=== PATIENT | female | born 1990 | race African-American/Black ===

== ENCOUNTER 2018-03-17 17:55 | Day surgery (SDC) | payer OTHER ==
[2018-03-17 18:39] VITALS: BMI 38.7
--- NOTE | 2018-03-17 20:27 | PRG ---
DATE OF SERVICE: 03/17/2018 TIME OF SERVICE: 1900 hours. PRESENTING COMPLAINT: Contractions, history of delivery at 37 weeks. HISTORY OF PRESENT ILLNESS: Ms. Parrish is a 27-year-old 4, para 3 at 37 weeks' gestation, wh o sees Dr. Rose Diallo at [facility] [employer]. She reports that her previous pregnancies have all ende d in a relatively rapid spontaneous labor at 37 weeks. She reports that she had some contractions to day. No rupture of membranes and no bleeding, but was concerned that she might be in early labor. S he presents to Labor and Delivery unit, and on serial exams as well as electronic monitoring, i s noted to have uterine irritability and a cervical exam that is unchanged from Dr. Diallo's office la . OB AND RECRUITMENT DIRECTOR HISTORY: Antepartum record not available. The patient reports spontaneous vaginal delive linda x3. No complications. The patient has a history of HSV, has been prescribed her acyclovir prop hylaxis, but has not picked up yet. PAST MEDICAL HISTORY: Denies. PAST SURGICAL HISTORY: Denies. ALLERGIES: Denies. MEDICATIONS: vitamins. SOCIAL HISTORY: Denies tobacco, alcohol, or IV drug use. FAMILY HISTORY: Noncontributory. REVIEW OF SYSTEMS: Noncontributory. PHYSICAL EXAMINATION: VITAL SIGNS: Temperature 99.2, blood pressure 132/84, pulse 85, respirations 18. HEENT: Within normal limits. LUNGS: Clear to auscultation bilaterally. HEART: Regular rhythm. BREASTS: Without masses bilaterally. ABDOMEN: Soft and nontender without rebound or guarding. GENITOURINARY: Occasional uterine irritability is noted, but no coordinating contractions noted. Fu ndal height is 36 cm. FHTs are 140s to 150s, category 1 heart rate tracing. PELVIC: Vulva is without lesions. No evidence of active herpes lesions. Cervix exam by nurse was 2 -3, 50, -2, cephalic, which is unchanged from previous office exam. EXTREMITIES: Without clubbing, cyanosis or edema. IMPRESSION: 1. A 37 weeks' gestation with uterine irritability. No evidence of active labor. 2. History of genital HSV, not on acyclovir prophylaxis yet, but no evidence of active lesion. PLAN: Discharge home. ER precautions. The patient has followup schedule later this week by Dr. Liliana Diallo.
== END 2018-03-17 19:10 | disposition home or self-care (01) ==
LOC: L&D/OP 17:55
PROVIDERS: ATTEND Obstetrics & Gynecology
DX: O47.1 False labor at or after 37 completed weeks of gestation (principal); Z3A.37 37 weeks gestation of pregnancy; Z79.899 Other long term (current) drug therapy
CPT/HCPCS: 99282

== ENCOUNTER 2018-03-20 15:06 | Inpatient (IN) | payer OTHER ==
[2018-03-20 16:06] VITALS: BMI 38.7
[2018-03-20] MEDS ORDERED: HYDROcodone/Acetaminophen 5/325 mg Tablet PO PRN ×4 (17:57→23:04)
[2018-03-20] MEDS ORDERED: Promethazine HCl 25 MG/ML VIAL IM PRN (17:57)
[2018-03-20] MEDS ORDERED: Docusate 100 MG CAP PO PRN (17:57)
[2018-03-20] MEDS ORDERED: NS / Oxytocin 40 units/1000ml 1,000 ML IV PRN (17:57)
[2018-03-20] MEDS ORDERED: Ibuprofen 800 MG TAB PO PRN (17:57)
[2018-03-20] MEDS ORDERED: Lidocaine 1% (PF) 30 ML VIAL SC PRN (17:57)
[2018-03-20] MEDS ORDERED: Zolpidem Tartrate 5 MG TAB PO PRN (17:57)
[2018-03-20] MEDS ORDERED: Ondansetron HCl/PF 4 MG/2 ML Vial IVP PRN ×2 (17:57→23:04)
[2018-03-20] MEDS ORDERED: LR 500 ML/Oxytocin 10 units 0 ML ONE (18:15)
[2018-03-20 18:22] LABS: Hemoglobin 12.2 g/dL (12.0-16.0); Mean Corpuscular HGB CONC 34.3 g/dL (32.0-36.0); Mean Corpuscular Hemoglobin 30.8 pg (27.0-31.0); Mean Corpuscular Volume 89.8 fl (81.0-99.0); Platelet Count 315 thou/uL (130-400); RBC Distribution Width 11.9 % (11.5-14.5); Red Blood Cell (RBC) Count 3.96 mill/uL (4.20-5.40); White Blood Cell (WBC) Count 11.7 thou/uL (4.8-10.8)
[2018-03-20 18:46] LABS: Syphilis Antibody Nonreactive (Nonreactive); Syphilis Antibody Index 0.04 S/CO (<1.00 Non-Reactive)
[2018-03-20 18:48] LABS: HBSAg Index 0.21 S/CO (0-0.99); Hep B Surf Ag Non-Reactive S/CO (NonReactive)
[2018-03-20] MEDS: NS w/ Oxytocin 10 units 500 ML IV SCH (19:58)
[2018-03-20] MEDS ORDERED: Lidocaine 1% (PF) 30 ML VIAL ONE (22:35)
[2018-03-20] MEDS ORDERED: NS / Oxytocin 40 units/1000ml 1,000 ML ONE (22:35)
[2018-03-20] MEDS ORDERED: diphenhydrAMINE 25 MG CAP PO PRN (23:04)
[2018-03-20] MEDS ORDERED: Milk Of Magnesia 30 ML UDCUP PO PRN (23:04)
[2018-03-20] MEDS ORDERED: Adacel (T-DAP) 0.5 ML VIAL IM ONE (23:04)
[2018-03-20] MEDS ORDERED: Bisacodyl 10 MG SUPP PR PRN (23:04)
[2018-03-20] MEDS ORDERED: Lanolin Ointment 7 GM TUBE TOP PRN (23:04)
[2018-03-20] MEDS ORDERED: NS / Oxytocin 40 units/1000ml 1,000 ML IV SCH (23:15)
[2018-03-21] MEDS: Ibuprofen 800 MG TAB PO SCH ×2 (01:52→09:25)
--- NOTE | 2018-03-21 04:18 | DN ---
DATE OF SERVICE: 03/20/2018 ADMITTING DIAGNOSES: 1. A 27-year-old G4, P3 at 37 and 4 weeks with active labor. 2. Group B Streptococcus negative. 3. History of positive herpes simplex virus test without any history of original outbreak, on prophy laxis. 4. Short-interval . POSTOPERATIVE DIAGNOSES: 1. A 27-year-old G4, P3 at 37 and 4 weeks with active labor. 2. Group B Streptococcus negative. 3. History of positive herpes simplex virus test without any history of original outbreak, on prophy laxis. 4. Short-interval . 5. Spontaneous rupture of membranes with clear fluid. 6. Liveborn female with Apgars of 9 and 9 at 1 and 5 minutes respectively. PROCEDURE: Spontaneous vaginal delivery. SURGEON: Rose Diallo MD ESTIMATED BLOOD LOSS: 150 mL. ANESTHESIA: None. CLINICAL HISTORY: This patient is a 27-year-old, G4, P3 who presented to my office for her routine O B visit. She was noted to report regular contractions and discomfort for the last 24 hours. She den ied any leakage of fluid; however, she did report that lots of pressure down below as well as better ability to breathe overnight indicating that she had dropped. The patient was checked and was noted to be 4 cm, 70% effaced, -3 station, and she had a history of all 3 of her previous deliveries at 37 weeks and a history of cervical exam that was 2 cm previously. The patient was sent over to labor an d delivery for direct admission for labor. When the patient arrived, she was checked and an amniotom y was attempted. It was difficult until the patient was able to void. After voiding, amniotomy was performed, but fluid was not seen due to the well-applied head. The patient shortly thereafter felt a large gush of fluid that was noted to be clear and was recorded as a spontaneous rupture of membran es at that time. The patient had infrequent contractions by monitoring at that time and 2 hours late r, Pitocin was started. The Pitocin continued and the patient progressed appropriately to complete c ervical dilation and felt the desire to push. DETAILS OF PROCEDURE: With good maternal effort and control, the patient gave 1 contraction worth of pushes and was able to deliver the vertex in the PETRA position. The anterior shoulder, followe d by the posterior shoulder, followed by the remainder of the 's body was delivered spontaneous ly. The infant cried at the delivery. The cord was doubly clamped and cut by the father, and the in halley was placed on the maternal abdomen. Cord blood was obtained. The placenta was then delivered s pontaneously intact with a 3-vessel cord. The uterus was massaged and noted to be firm and well belo w the umbilicus. Exploration of the vagina, introitus, and cervix noted no lacerations. The patient was expressed, cleansed, draped, and allowed to recover in the recovery room in satisfactory conditi on. There were no tears or lacerations. The sponge, needle, lap, and instrument counts were correct x2 at the end of the procedure and the patient was able to recover on labor and delivery in satisfac tory condition with her infant. Again, the was a female. Weight was unavailable at the time of dictation, but Apgars were 9 and 9 at 1 and 5 minutes respectively. There were no other issues rueda rrounding this delivery.
[2018-03-21] MEDS: Docusate Calcium (SURFAK) 240 MG CAP PO SCH ×2 (09:24→21:58)
[2018-03-21] MEDS: Prenatal Vitamin 1 TAB PO SCH (09:24)
[2018-03-21] MEDS: Ferrous Sulfate 325 MG TAB PO SCH ×2 (18:07→18:08)
[2018-03-22] MEDS: NS w/ Oxytocin 10 units 500 ML IV SCH (01:00)
[2018-03-22] MEDS: Ibuprofen 800 MG TAB PO SCH ×3 (01:02→09:23)
[2018-03-22 08:20] VITALS: BP 127/64; TEMP 98
[2018-03-22] MEDS: Ferrous Sulfate 325 MG TAB PO SCH (09:21)
[2018-03-22] MEDS: Prenatal Vitamin 1 TAB PO SCH (09:23)
[2018-03-22] MEDS: Docusate Calcium (SURFAK) 240 MG CAP PO SCH (09:23)
== END 2018-03-22 14:15 | disposition home or self-care (01) | DRG 774 ==
LOC: L&D 15:06 → 3SW 03-21 01:30
PROVIDERS: ADMIT Obstetrics & Gynecology; ATTEND Obstetrics & Gynecology
PROC: 10E0XZZ Delivery of Products of Conception, External Approach (ICD-10-PCS; principal; 2018-03-20)
DX: O98.52 Other viral diseases complicating childbirth (principal); Z37.0 Single live birth; Z3A.37 37 weeks gestation of pregnancy; B00.9 Herpesviral infection, unspecified; Z79.899 Other long term (current) drug therapy
CPT/HCPCS: 85027; 86780; 86850; 86900; 86901; 87340; J0595; J2001; J7120

== ENCOUNTER 2018-04-19 00:33 | Emergency (ER) | payer OTHER | END 2018-04-19 00:55 | disposition left against medical advice (07) | LOC: ERS 00:33 | DX: Z53.21 Procedure and treatment not carried out due to patient leaving prior to being seen by health care provider (principal) ==

== ENCOUNTER 2018-10-03 18:11 | Emergency (ER) | payer OTHER | END 2018-10-03 19:00 | disposition home or self-care (01) | LOC: SCSER 18:11 | DX: N61.0 Mastitis without abscess (principal) | CPT/HCPCS: 99283 ==